=== PATIENT | female | born 2000 | race Caucasian/White ===

== ENCOUNTER 2019-01-15 22:23 | Emergency (ER) | payer SELFPAY ==
[2019-01-15] MEDS ORDERED: diphenhydrAMINE 50 MG/ML VIAL ONE (23:23)
[2019-01-15] MEDS ORDERED: Lorazepam 2 MG/ML VIAL ONE (23:23)
== END 2019-01-16 00:18 | disposition home or self-care (01) ==
LOC: ERS 22:23
DX: G25.9 Extrapyramidal and movement disorder, unspecified (principal)
CPT/HCPCS: 96374; 96375; J1200; J2060

== ENCOUNTER 2019-01-21 03:52 | Emergency (ER) | payer SELFPAY ==
[2019-01-21] MEDS ORDERED: Lorazepam 2 MG/ML VIAL ONE (04:27)
[2019-01-21] MEDS ORDERED: Morphine 4 MG/ML VIAL ONE (04:28)
[2019-01-21 04:36] LABS: #Eosinphils 0.4 thou/uL (0.0-0.7); #Lymphocytes 2.7 thou/uL (1.20-3.40); #Monocytes 0.5 thou/uL (0.11-0.59); %Basophils 0.6 % (0.0-1.0); %Eosinophils 4.1 % (0.0-10.0); %Lymphocytes 31.4 % (28.0-48.0); %Monocytes 6.2 % (0.0-4.0); %Neutrophils 57.8 % (31.0-61.0); Hemoglobin 14.4 g/dL (12.0-16.0); Mean Corpuscular HGB CONC 33.6 g/dL (32.0-36.0); Mean Corpuscular Hemoglobin 29.8 pg (25.0-35.0); Mean Corpuscular Volume 88.7 fL (78.0-98.0); Mean Platelet Volume 6.9 fL (7.4-10.4); Platelet Count 333 thou/uL (130-400); Red Blood Cell (RBC) Count 4.85 mill/uL (4.00-5.20); White Blood Cell (WBC) Count 8.6 thou/uL (4.8-10.8)
[2019-01-21 04:50] LABS: Pregnancy Test - Urine (BHCG) Negative (Negative)
[2019-01-21 04:51] LABS: Clarity Clear (Clear); Pregu Control Background? CLEAR/WHITE (CLR/WHITE); Pregu Control Bar Appear? YES (CONTROL BAR); Specific Gravity 1.025 (1.002-1.036)
[2019-01-21 04:51] LABS: BHCG - Serum Negative (NEGATIVE); Pregs Control Background? CLEAR/WHITE (CLR/WHITE); Pregs Control Bar Appear? YES (CONTROL BAR)
[2019-01-21 04:52] LABS: Leukocyte Negative (Negative); Nitrite Negative (Negative); Protein, Urine (Dipstick) Negative (Neg-Trace); Specific Gravity, Urine 1.025 (1.005-1.030); pH, Urine 5.5 (5.0-9.0)
[2019-01-21 04:53] LABS: Bilirubin Negative (Negative); Blood, Urine Negative (Negative); Glucose, Urine (Dipstick) Negative (Negative); Urobilinogen 0.2 mg/dL (0.2-1.0)
[2019-01-21 04:57] LABS: ALT (SGPT) 24 U/L (8-55); AST (SGOT) 15 U/L (5-34); Albumin 4.8 g/dL (3.5-5.0); Alkaline Phosphatase 57 U/L (40-150); Anion Gap 14 mmol/L (10-20); BUN (Urea Nitrogen) 9 mg/dL (7.0-18.7); Bilirubin, Total 0.5 mg/dL (0.2-1.2); Calc. Creatinine Clearance 0 mL/min (70-130); Calcium 9.8 mg/dL (7.8-10.44); Carbon Dioxide 24 mmol/L (22-29); Chloride 105 mmol/L (98-107); Estimated GFR-MDRD Greater than 90; Globulin 2.9 g/dL (2.4-3.5); Glucose 93 mg/dL (70-105); Lipase 21 U/L (8-78); Potassium 3.8 mmol/L (3.5-5.1); Protein, Total 7.7 g/dL (6.0-8.3); Sodium 139 mmol/L (136-145)
--- NOTE | 2019-01-21 07:04 | ULT ---
GALLBLADDER ULTRASOUND: INDICATIONS: Pain. Nausea and vomiting. Postprandial bloating. FINDINGS: No focal hepatic lesion. There is evidence of cholelithiasis with associated gallbladder distention. The casino cage cashier reports a positive Nascimento sign. The gallbladder wall is normal, as demonstrated, m easuring 2 mm in thickness. The common duct is mildly dilated at 6 mm. IMPRESSION: 1. Distended gallbladder with cholelithiasis and a positive Nascimento sign. Recommend clinical correla tion for evidence of associated cholecystitis. 2. Mild biliary ductal dilatation. Correlate with biliary laboratory values to exclude a developing obstructive process. POS: [id number]
== END 2019-01-21 05:42 | disposition home or self-care (01) ==
LOC: ERS 03:52
DX: K80.20 Calculus of gallbladder without cholecystitis without obstruction (principal); F32.9 Major depressive disorder, single episode, unspecified; F17.210 Nicotine dependence, cigarettes, uncomplicated
CPT/HCPCS: 76705; 80053; 81003; 81025; 83690; 84703; 85025; 96374; 96375; J2060; J2270

== ENCOUNTER 2019-11-28 16:29 | Emergency (ER) | payer SELFPAY ==
[2019-11-28] MEDS ORDERED: Ondansetron ODT 4 MG TAB ONE (16:49)
[2019-11-28 17:12] LABS: #Eosinphils 0.2 thou/uL (0.0-0.7); #Lymphocytes 1.7 thou/uL (1.20-3.40); #Monocytes 0.5 thou/uL (0.11-0.59); #Neutrophils 4.8 thou/uL (1.40-6.50); %Basophils 0.2 % (0.0-1.0); %Eosinophils 3.3 % (0.0-10.0); %Lymphocytes 23.5 % (21.0-51.0); %Monocytes 6.4 % (0.0-10.0); %Neutrophils 66.7 % (42.0-75.0); Hemoglobin 14.2 g/dL (12.0-16.0); Mean Corpuscular HGB CONC 33.3 g/dL (32.0-36.0); Mean Corpuscular Volume 90.2 fL (78.0-98.0); Mean Platelet Volume 6.9 fL (7.4-10.4); Platelet Count 257 thou/uL (130-400); RBC Distribution Width 12.5 % (11.5-14.5); Red Blood Cell (RBC) Count 4.74 mill/uL (4.20-5.40); White Blood Cell (WBC) Count 7.2 thou/uL (4.8-10.8)
[2019-11-28 17:23] LABS: BHCG - Serum Negative (NEGATIVE); Pregs Control Background? CLEAR/WHITE (CLR/WHITE); Pregs Control Bar Appear? YES (CONTROL BAR)
[2019-11-28 17:34] LABS: Anion Gap 14 mmol/L (10-20); BUN (Urea Nitrogen) 12 mg/dL (7.0-18.7); Calc. Creatinine Clearance 0 mL/min (70-130); Calcium 9.3 mg/dL (7.8-10.44); Carbon Dioxide 25 mmol/L (22-29); Chloride 105 mmol/L (98-107); Estimated GFR-MDRD Greater than 90; Glucose 82 mg/dL (70-105); Potassium 3.9 mmol/L (3.5-5.1); Sodium 140 mmol/L (136-145)
== END 2019-11-28 18:01 | disposition home or self-care (01) ==
LOC: ERS 16:29
DX: R11.2 Nausea with vomiting, unspecified (principal); R19.7 Diarrhea, unspecified; F31.9 Bipolar disorder, unspecified; F41.9 Anxiety disorder, unspecified; F17.210 Nicotine dependence, cigarettes, uncomplicated
CPT/HCPCS: 36415; 80048; 84703; 85025; 99284; Q0162